=== PATIENT | female | born 2000 | race Caucasian/White ===

== ENCOUNTER → 2021-07-09 | Outpatient (CLI) | payer OTHER | LOC: COL.RAD 07:10 | DX: K76.0 Fatty (change of) liver, not elsewhere classified (principal); R74.8 Abnormal levels of other serum enzymes ==

== ENCOUNTER → 2022-02-02 | Outpatient (CLI) | payer OTHER | LOC: COL.RAD 07:42 | DX: R11.0 Nausea (principal); R14.2 Eructation; R14.0 Abdominal distension (gaseous) | CPT/HCPCS: A9541 ==